=== PATIENT | female | born 1960 | race Caucasian/White ===

== ENCOUNTER 2016-12-10 06:47 | Inpatient (IN) | payer OTHER ==
[2016-11-09 10:11] VITALS: BMI 41.0
--- NOTE | 2016-11-09 10:42 | PAT Medication Instructions ---
Service Date Nov 09, 2016. Current Home Medication List Allopurinol (Zyloprim), 300 MG PO QAM Amphetamine-Dextroamphetamine 30MG (Adderall 30MG), 30 MG PO QAM/NOON B Complex W/ C (Vitamin B Complex-C), 1 TAB PO QAM Bupropion (Wellbutrin-Xl), 300 MG PO QAM Cholecalciferol (Vitamin D3), 1 CAP PO QAM Citalopram Hydrobromide (Celexa), 20 MG PO QPM Colchicine (Colchicine), 0.6 MG PO BID PRN for N Cyanocobalamin (Vitamin B12 500MCG), 1,500 MCG PO QAM Ezetimibe (Zetia), 10 MG PO QPM Fish Oil (Oto-3), 1,500 MG PO QAM Hydroxyzine Hcl (Atarax), 20-60 MG PO PRN Levothyroxine Sodium (Levothyroxine Sodium), 1 TAB PO QAM Naltrexone Hcl (Naltrexone Hcl), 1 TAB PO QAM Potassium Chloride (Micro-K Ext Rel), 10 MEQ PO QAM Sumatriptan Succinate (Imitrex), 50 MG PO PRN PRN for UD Topiramate (Topamax), 50 MG PO BID Triamcinolone Acetonide (Nasal (Nasacort Allergy 24Hr), 2 SPRAYS HERNÁN PRN Triamterene/Hctz (Triamterene/Hctz 37.5-25MG), 1 TAB PO QAM Valsartan (Diovan), 80 MG PO QPM Warfarin Sod (Jantoven), 10 MG PO QPM Medication Instructions For Your Scheduled Surgery - Check with surgeon/video conference specialist for instructions: Warfarin Sod (Jantoven), 10 MG PO QPM - Hold the following medications 2 weeks prior to surgery: Fish Oil (Oto-3), 1,500 MG PO QAM - Hold the following medications the morning of surgery: Triamterene/Hctz (Triamterene/Hctz 37.5-25MG), 1 TAB PO QAM Potassium Chloride (Micro-K Ext Rel), 10 MEQ PO QAM Cyanocobalamin (Vitamin B12 500MCG), 1,500 MCG PO QAM Cholecalciferol (Vitamin D3), 1 CAP PO QAM B Complex W/ C (Vitamin B Complex-C), 1 TAB PO QAM Amphetamine-Dextroamphetamine 30MG (Adderall 30MG), 30 MG PO QAM/NOON Naltrexone Hcl (Naltrexone Hcl), 1 TAB PO QAM Colchicine (Colchicine), 0.6 MG PO BID PRN for N - Take the following medications the morning of surgery with a sip of water: Triamcinolone Acetonide (Nasal (Nasacort Allergy 24Hr), 2 SPRAYS HERNÁN PRN (if needed) Topiramate (Topamax), 50 MG PO BID Sumatriptan Succinate (Imitrex), 50 MG PO PRN PRN for UD (if needed) Levothyroxine Sodium (Levothyroxine Sodium), 1 TAB PO QAM Hydroxyzine Hcl (Atarax), 20-60 MG PO PRN (if needed) Bupropion (Wellbutrin-Xl), 300 MG PO QAM Allopurinol (Zyloprim), 300 MG PO QAM - Hold the following medications as scheduled the night before surgery: Colchicine (Colchicine), 0.6 MG PO BID PRN for N Valsartan (Diovan), 80 MG PO QPM - Take the following medications as scheduled the night before surgery: Triamcinolone Acetonide (Nasal (Nasacort Allergy 24Hr), 2 SPRAYS HERNÁN PRN (if needed) Topiramate (Topamax), 50 MG PO BID Sumatriptan Succinate (Imitrex), 50 MG PO PRN PRN for UD (if needed) Hydroxyzine Hcl (Atarax), 20-60 MG PO PRN (if needed) Ezetimibe (Zetia), 10 MG PO QPM Citalopram Hydrobromide (Celexa), 20 MG PO QPM Amphetamine-Dextroamphetamine 30MG (Adderall 30MG), 30 MG PO QAM/NOON If you have any questions please call us at [phone] or [phone] or [phone]
--- NOTE | 2016-11-09 11:17 | DIAGNOSTIC IMAGING REPORT ---
CHEST PREADMISSION(PA/LAT) CLINICAL HISTORY: Preoperative evaluation. COMPARISON STUDY: No previous studies for comparison. FINDINGS: Lung volumes are normal. There is no pneumothorax or pleural effusion. There is no evidence of pulmonary edema. There is slight elevation of the right hemidiaphragm. No consolidation is identified. Cardiomediastinal silhouette is normal. IMPRESSION: No acute cardiopulmonary findings. Electronically signed by: Amrti Sanchez M.D. 11/09/2016 11:16 AM Dictated Date/Time: 11/09/2016 11:15 AM
[2016-11-09 12:14] LABS: BASO % 0.4 %; BASO ABS # 0.04 K/uL (0-0.2); COMPLETE YES; EOS % 1.6 %; HEMATOCRIT 44.6 % (37-47); IG% 0.2 %; LYMPH % 28.4 %; LYMPH ABS # 2.91 K/uL (1.2-3.4); MEAN CELL VOLUME 91.2 fL (80-100); MEAN CORPUSCULAR HEMOGLOBIN 30.7 pg (25-34); MEAN CORPUSCULAR HGB CONC 33.6 g/dl (32-36); MEAN PLATELET VOLUME 9.8 fL (7.4-10.4); MONO % 7.5 %; NEUT % 61.9 %; PLATELET COUNT 300 K/uL (130-400); RED BLOOD COUNT 4.89 M/uL (4.2-5.4); WHITE BLOOD COUNT 10.26 K/uL (4.8-10.8)
[2016-11-09 12:14] LABS: URINE APPEARANCE CLEAR (CLEAR); URINE BILIRUBIN NEG (NEG); URINE COLOR DK YELLOW; URINE NITRITE NEG (NEG); URINE PH 7.5 (4.5-7.5); URINE SPECIFIC GRAVITY 1.018 (1.000-1.030); UROBILINOGEN NEG (NEG)
[2016-11-09 12:21] LABS: BUN/CREATININE RATIO 17.5 (10-20); CALCIUM 9.5 mg/dl (8.5-10.1); POTASSIUM 3.6 mmol/L (3.5-5.1)
[2016-11-09 12:31] LABS: INR 2.7 (0.9-1.1); PARTIAL THROMBOPLASTIN RATIO 1.4
[2016-11-09 12:34] LABS: MANUAL MICROSCOPIC REQUIRED? NO; REVIEW REQ? NO
--- NOTE | 2016-12-08 17:20 | History and Physical ---
History & Physical Date Dec 08, 2016. Chief Complaint LEFT KNEE PAIN History of Present Illness The patient is a 56 year old female with complaints of left knee pain for years. Has had multiple injections and therapy with no relief. Also had arthroscopic surgery in [place] and not much relief. Shes ready for left TKA. Pt has hx of antiphospholipid syndrome and on coumadin for that. Her grain weigher recommends lovenox 1gram/kg post op until INR therapeutic. Additional History Hepatic Disease: No Endocrine Disorder: No Kidney Disease: No Hypertension: Yes Heart Disease: No Bleeding Tendencies: Yes (APL syndrome, hx of PE in past) Infectious Diseases: No Allergies Coded Allergies: Adhesives (Verified Allergy, Unknown, REDNESS SKIN IRRITATION, 11/09/16) Ciprofloxacin (Verified Allergy, Unknown, HIVES, 11/09/16) Milk (Verified Allergy, Unknown, CAN'T PROCESS MILK PROD-EATS SMALL AMTS - GETS CONSTIPATION, 11/09/16) Home Medications Scheduled Allopurinol (Zyloprim), 300 MG PO QAM Amphetamine-Dextroamphetamine 30MG (Adderall 30MG), 30 MG PO QAM/NOON B Complex W/ C (Vitamin B Complex-C), 1 TAB PO QAM Bupropion (Wellbutrin-Xl), 300 MG PO QAM Cholecalciferol (Vitamin D3), 1 CAP PO QAM Citalopram Hydrobromide (Celexa), 20 MG PO QPM Cyanocobalamin (Vitamin B12 500MCG), 1,500 MCG PO QAM Ezetimibe (Zetia), 10 MG PO QPM Fish Oil (Shelby-3), 1,500 MG PO QAM Hydroxyzine Hcl (Atarax), 20-60 MG PO PRN Levothyroxine Sodium (Levothyroxine Sodium), 1 TAB PO QAM Potassium Chloride (Micro-K Ext Rel), 10 MEQ PO QAM Topiramate (Topamax), 50 MG PO BID Triamcinolone Acetonide (Nasal (Nasacort Allergy 24Hr), 2 SPRAYS HERNÁN PRN Triamterene/Hctz (Triamterene/Hctz 37.5-25MG), 1 TAB PO QAM Valsartan (Diovan), 80 MG PO QPM Warfarin Sod (Jantoven), 10 MG PO QPM Scheduled PRN Colchicine (Colchicine), 0.6 MG PO BID PRN for N Sumatriptan Succinate (Imitrex), 50 MG PO PRN PRN for UD Physical Examination Skin: warm/dry, no rash Eyes: normal inspection, EOMI, sclerae normal ENT: normal ENT inspection, pharynx normal Head: normocephalic, atraumatic Neck: supple, no adenopathy, trachea midline Respiratory/Chest: lungs clear, normal breath sounds, no respiratory distress Cardiovascular: regular rate, rhythm, no edema, no murmur Abdomen / GI: normal bowel sounds, non tender Back: normal inspection Extremities: + pertinent finding (pain with rom left knee) Diagnosis DJD LEFT KNEE Plan of Treatment PLAN IS ADMIT AND UNDERGO LEFT TKA. PT WILL BE ON ZAIRE/COUMADIN POST OP, DEF NO TOURNIQUET, DRAIN AND HOME PT.
[~2016-12-10] VITALS: Ht 175.3 cm; Wt 127.3 kg
[2016-12-10] VITALS (10 sets, daily range): BP systolic 96–150; BP diastolic 61–81; PULSE 74–81; TEMP 36.4–36.9; O2SAT 95–98; Ht 175.3 cm; Wt 127.3 kg
[~2016-12-10 06:47] MED LIST: ACETAMINOPHEN 500 MG TAB PO SCH; ALLO300T2 PO; AMPH30TA2 PO; B COCAP3 PO; BUPRTAB51 PO; CEFAZOLIN 3000 MG/65 ML D5W 65 ML IV SCH; CHOL2000 PO; CITA20TA9 PO; COLC0.6T54 PO; CYAN500T13 PO; CeleBREX 200 MG CAP PO SCH; DEXAMETHASONE 4 MG TAB PO SCH; DVN80 PO; EZET10TA63 PO; FAMOTIDINE 20 MG TAB PO SCH; HYDR-389 PO; LACTATED RINGER'S 1000ML 1,000 ML IV SCH; LACTATED RINGER'S 1000ML 500 ML IV ONE; LEVO150T9 PO; METOCLOPRAMIDE HCL 10 MG TAB PO SCH; OMEG10007 PO; POTA10CA28 PO; ROPIVACAINE 5MG/ML 30 ML 150 MG, BUPIVACAINE/EPINEPHR 0.5% MPF 30 ML, KETOROLAC TROMETH... INFIL SCH; SUMA50TA15 PO; TOPI50TA16 PO; TRANEXAMIC ACID INJ 1,000 MG in SODIUM CHLORIDE 0.9% 100ML 100 ML IV SCH; TRIA1SPR4 NAE; TRIATAB3 PO; WARF10TA4 PO
[2016-12-10 07:56] LABS: INR 1.1 (0.9-1.1)
[2016-12-10] MEDS ORDERED: BUPIVACAINE 0.25% 30 ML VIAL ONE (08:08)
[2016-12-10] MEDS ORDERED: EpINEphrine INJ 1MG/ML AMP 1 MG/ML AMP ONE (08:09)
[2016-12-10] MEDS ORDERED: BUPIVACAINE 0.5 % 5 MG/1 ML PF 10ML VIAL ONE (08:09)
[2016-12-10] MEDS ORDERED: MIDAZOLAM HCL 1 MG/ML 2ML VIAL ONE (08:14)
[2016-12-10] MEDS ORDERED: LIDOCAINE HCL 2% 2 ML VIAL (20MG/ML) ONE (08:14)
[2016-12-10] MEDS ORDERED: PROPOFOL IV EMULSION 10 MG/ML 20 ML VIAL IV ONE ×3 (08:14→10:45)
[2016-12-10] MEDS ORDERED: PHENYLEPHRINE 100MCG/ML 5ML SYR IV PRN (08:15)
[2016-12-10] MEDS ORDERED: NALOXONE HCL 0.4 MG/1 ML VIAL/CARP IV PRN (08:15)
[2016-12-10] MEDS ORDERED: LABETALOL HCL IV 5 MG/ML 20ML IV PRN (08:15)
[2016-12-10] MEDS ORDERED: FENTANYL CITRATE INJ 50 MCG/1 ML 2 ML VIAL IV PRN (08:15)
[2016-12-10] MEDS ORDERED: HYDROmorphone INJ 1 MG/ML SYR IV PRN (08:15)
[2016-12-10] MEDS ORDERED: EpHEDrine SULFATE INJ 50 MG/ML AMP IV PRN (08:15)
[2016-12-10] MEDS ORDERED: ONDANSETRON INJ 2 MG/ML 2 ML VIAL IV PRN ×2 (08:15→10:45)
[2016-12-10] MEDS ORDERED: MEPERIDINE HCL 25 MG/ML CARP IV PRN (08:15)
[2016-12-10] MEDS ORDERED: FLUMAZENIL 0.1 MG/1 ML 10 ML VIAL IV PRN (08:15)
[2016-12-10] MEDS ORDERED: ATROPINE SULFATE 0.1 MG/ML 5ML SYR IV PRN (08:15)
--- NOTE | 2016-12-10 08:28 | History & Physical Bridge Note ---
H&P Re-Evaluation Bridge Note: I have examined the patient, reviewed the History & Physical and in the interval since the performance of the History & Physical I have noted the following changes of clinical significance: No changes noted
[2016-12-10] MEDS ORDERED: ORTHO JOINT ANESTHETIC ONE (08:45)
[2016-12-10] MEDS ORDERED: BACITRACIN 50000 UNIT VIAL ONE (08:46)
[2016-12-10] MEDS ORDERED: POVIDONE-IODINE OP SOLN 30 ML BTL ONE (08:46)
[2016-12-10] MEDS ORDERED: ONDANSETRON INJ 2 MG/ML 2 ML VIAL ONE (09:57)
[2016-12-10] MEDS ORDERED: LABETALOL HCL IV 5 MG/ML 20ML IV ONE (10:10)
[2016-12-10] MEDS ORDERED: ALUMINUM/MAGNESIUM/SIMETH (MAALOX MAX) 30 ML UDC PO PRN (10:45)
[2016-12-10] MEDS ORDERED: BISACODYL 10 MG SUPP PR PRN (10:45)
[2016-12-10] MEDS ORDERED: MAGNESIUM HYDROXIDE SUSP 30 ML UDC PO PRN (10:45)
[2016-12-10] MEDS ORDERED: ZOLPIDEM TARTRATE 5 MG TAB PO PRN (10:45)
--- NOTE | 2016-12-10 10:45 | [facility] Operative Report ---
Operative Report Operative Date Dec 10, 2016. Pre-Operative Diagnosis Left Knee Degenerative Joint Disease Post-Operative Diagnosis Left Knee Degenerative Joint Disease Procedure(s) Performed Left Total Knee Arthroplasty Surgeon Dr. Saldana Contact Center Specialist Surgeon(s) KAYLIE Jones Estimated Blood Loss 60cc Findings As above Specimens A. Left Knee Bone and Tissue Complication(s) None Description of Procedure IMPLANTS USED: [employer]hew journey 2 knee size 6 cemented femoral component, a size 3 tibial component, a size 10 constrained insert and a size 32 all polyethylene patella INDICATIONS: nuris (female) who has unfortunately failed all forms of conservative measures. Therefore, they have decided to undergo elective surgical intervention. All risks and benefits of the surgery were discussed with the patient and the family in entirety. PROCEDURE: The patient was brought to the operating room and properly identified by myself, anesthesia, and staff. Patient was given a spinal anesthesia and placed on the operating table in the supine position. The leg was then prepped and draped in usual sterile fashion. We made a standard midline approach over the patella and dissected down through the subcutaneous tissue to identify the capsule and performed a medial capsulotomy with the patella everted and the knee flexed.The patient matched implant was then put onto the femur. The femur measured to be a size 6. This was then put into place. We made the appropriate cuts and then placed a retractor behind the proximal tibia to retract anteriorly. We then placed the patient matched knee implant on the tibia. It measured to be a size 3. A size 3 guide was then put in place. We used the tibial punch then put the trial components into place. We had very good range of motion, excellent stability, and excellent patella tracking. We removed the trial components and irrigated the wound. We impacted the components in place using antibiotic cement. All excess cement was removed. We then irrigated the wound once more. We closed the capsule with 0 PDS suture, deep dermis and 2-0 Vicryl, and finally the skin with landry. A sterile dressing was applied. The patient was taken to the recovery room in stable condition. Due to the complex nature of the procedure, the entire surgery was performed with the operational assistance of [the (KAYLIE-Maurice)]. The timber management assistant was under direct supervision, was involved in the actual performance of all aspects of the surgical procedure including hemostasis, tissue retraction and incision, instrument management, patient positioning, and wound closure. I attest to the content of the Intraoperative Record and any orders documented therein. Any exceptions are noted below.
[2016-12-10] MEDS ORDERED: SUMATRIPTAN SUCCINATE 50 MG TAB PO PRN (11:00)
[2016-12-10] MEDS ORDERED: TRIAMCINOLONE ACET NASAL SPRAY 10.8ML BTL NAE PRN (11:00)
--- NOTE | 2016-12-10 12:11 | Anesthesiology Progress Note ---
Anesthesia Post Op Note Date & Time Dec 10, 2016 at 12:11 Vital Signs Pain Intensity: 0 Vital Signs Past 12 Hours Date Time Temp Pulse Resp B/P (MAP) Pulse Ox O2 Delivery O2 Flow Rate FiO2 12/10/16 12:00 36.7 83 19 101/67 94 Nasal Cannula 2 12/10/16 11:50 82 16 110/64 95 Nasal Cannula 2 12/10/16 11:40 84 15 108/71 97 Nasal Cannula 2 12/10/16 11:30 79 16 129/66 95 Nasal Cannula 2 12/10/16 11:20 66 13 113/58 96 Nasal Cannula 2 12/10/16 11:12 36.8 78 13 115/59 96 Nasal Cannula 2 12/10/16 07:35 36.5 74 20 150/81 97 Room Air Notes Mental Status: alert / awake / arousable, participated in evaluation Pt Amnestic to Procedure: Yes Nausea / Vomiting: adequately controlled Pain: adequately controlled Airway Patency, RR, SpO2: stable & adequate BP & HR: stable & adequate Hydration State: stable & adequate Neuraxial Anesthesia: was administered, sensory block is resolving Anesthetic Complications: no major complications apparent
[2016-12-10] MEDS: SODIUM CHLORIDE 0.9% 1000ML 1,000 ML IV SCH ×2 (13:31→22:48)
--- NOTE | 2016-12-10 13:42 | Medical Consult ---
Consultation Date of Consultation: Dec 10, 2016. Attending Physician: Gorge Saldana DO Reason for Consultation: Medical Management History of Present Illness Ms. Mccabe is a 56 y/o female with PMHx of Antiphospholipid Syndrome on Coumadin , Gout, Hypothyroidism, HTN, HLD, and Anxiety/Depression who is S/P L TKA by Dr. Saldana. She has been on Coumadin since 2000 and reports generally well controlled levels. No recent blood clots. She denies any known cardiac issues. Her daycare provider recommends institution of therapeutic Lovenox for bridging with Coumadin. Pain is controlled with nerve block. She denies fever/chills, CP , SOB, N/V, abdominal pain, dysuria, constipation/diarrhea. Past Medical/Surgical History 1. Antiphospholipid Syndrome 2. HTN 3. HLD 4. Hypothyroidism 5. Gout 6. Anxiety/Depression Family History Hypertension Social History Smoking Status: Former Smoker Smokeless Tobacco Use: No Alcohol Use: socially Drug Use: none Occupation Status: employed Allergies Coded Allergies: Adhesives (Verified Allergy, Unknown, REDNESS SKIN IRRITATION, 12/10/16) Ciprofloxacin (Verified Allergy, Unknown, HIVES, 12/10/16) Milk (Verified Allergy, Unknown, CAN'T PROCESS MILK PROD-EATS SMALL AMTS - GETS CONSTIPATION, 12/10/16) Current Inpatient Medications Current Inpatient Medications Medications (Trade) Dose Ordered Sig/Doroteo Route Start Time Stop Time Status Last Admin Dose Admin Cefazolin Sodium 65 ml @ 100 mls/hr PREOP IV 12/10/16 06:00 12/10/16 18:00 12/10/16 09:24 100 MLS/HR Acetaminophen (Tylenol Tab) 1,000 mg PREOP PO 12/10/16 06:00 12/10/16 18:00 12/10/16 07:51 1,000 MG Celecoxib (CeleBREX CAP) 200 mg PREOP PO 12/10/16 06:00 12/10/16 18:00 12/10/16 07:49 200 MG Dexamethasone (Decadron Tab) 8 mg PREOP PO 12/10/16 06:00 12/10/16 18:00 12/10/16 07:50 8 MG Famotidine (Pepcid Tab) 20 mg PREOP PO 12/10/16 06:00 12/10/16 18:00 12/10/16 07:50 20 MG Metoclopramide HCl (Reglan Tab) 10 mg PREOP PO 12/10/16 06:00 12/10/16 18:00 12/10/16 07:50 10 MG Ropivacaine 150 mg/Bupivacaine HCl/Epinephrine Bitart 30 ml/ Ketorolac Tromethamine 30 mg/Dexamethasone Sodium Phosphate 4 mg/Ketamine HCl 10 mg/Clonidine 100 mcg/Sodium Chloride 30 ml/ Empty Bag 93.2 ml @ 0 mls/hr TODAY@06 INFIL 12/10/16 06:00 12/10/16 15:00 12/10/16 10:08 93.2 MLS/HR Sodium Chloride 1,000 ml @ 100 mls/hr Q10H IV 12/10/16 13:00 12/11/16 12:59 12/10/16 13:31 100 MLS/HR Oxycodone HCl (Roxicodone Immediate Rel Tab) 1 TABLET FOR PAIN RATING... Q4H PRN PO 12/10/16 10:45 12/24/16 10:44 Oxycodone HCl (Oxycontin Tab) 10 mg Q12 PO 12/10/16 21:00 12/24/16 20:59 Acetaminophen (Tylenol Tab) 1,000 mg Q8 PO 12/10/16 15:00 01/09/17 14:59 Magnesium Hydroxide (Milk Of Magnesia Susp) 30 ml Q6H PRN PO 12/10/16 10:45 01/09/17 10:44 Bisacodyl (Dulcolax Supp) 10 mg DAILY PRN VA 12/10/16 10:45 01/09/17 10:44 Docusate Sodium (coLACE CAP) 100 mg BID PO 12/10/16 21:00 01/09/17 20:59 Diphenhydramine HCl (Benadryl Cap) 25 mg Q8H PRN PO 12/10/16 10:45 01/09/17 10:44 Al Hydrox/Mg Hydrox/Simethicone (Maalox Max Susp) 15 ml Q4H PRN PO 12/10/16 10:45 01/09/17 10:44 Zolpidem Tartrate (Ambien Tab) 5 mg HSZ PRN PO 12/10/16 10:45 01/09/17 10:44 Ondansetron HCl (Zofran Inj) 4 mg Q6H PRN IV 12/10/16 10:45 01/09/17 10:44 Pantoprazole Sodium (Protonix Tab) 40 mg QAM PO 12/11/16 09:00 01/10/17 08:59 Dexamethasone Sodium Phosphate 10 mg/Syringe 2.5 ml @ 1 mls/min 0730 IV 12/11/16 07:30 12/11/16 07:33 Bupropion HCl (Wellbutrin-Xl Tab) 300 mg QAM PO 12/11/16 09:00 01/10/17 08:59 Citalopram Hydrobromide (celeXA TAB) 20 mg QPM PO 12/10/16 21:00 01/09/17 20:59 EZETIMIBE (Zetia Tab) 10 mg QPM PO 12/10/16 21:00 01/09/17 20:59 Levothyroxine Sodium (Synthroid Tab) 150 mcg DAILYBB PO 12/11/16 06:00 01/10/17 05:59 Potassium Chloride (Klor-Con M10) 10 meq QAM PO 12/11/16 09:00 01/10/17 08:59 Sumatriptan Succinate (Imitrex Tab) 50 mg DAILY PRN PO 12/10/16 11:00 01/09/17 10:59 Topiramate (Topamax Tab) 50 mg BID PO 12/10/16 21:00 01/09/17 20:59 Triamcinolone Acetonide (Nasacort Allergy 24hr) 2 sprays DAILY PRN HERNÁN 12/10/16 11:00 01/09/17 10:59 Triamterene/HCTZ (Maxzide 37.5/25 Tab) 1 tab QAM PO 12/11/16 09:00 01/10/17 08:59 Valsartan (Diovan Tab) 80 mg QPM PO 12/10/16 21:00 01/09/17 20:59 Non-Formulary Medication (Amphetamine-Dextroamphetamine 30MG (Adderall 30MG)) 30 mg QAM/NOON PO 12/10/16 11:00 01/09/17 10:59 UNV Warfarin Sodium (Coumadin Tab) 10 mg DAILY@1600 PO 12/10/16 21:00 01/09/17 20:59 Cefazolin Sodium 2000 mg/Dextrose 60 ml @ 100 mls/hr Q8H IV 12/10/16 18:00 12/11/16 02:35 Review of Systems Constitutional: No fever, No chills Eyes: No worsening of vision ENT: No nasal symptoms, No sore throat, No trouble swallowing Respiratory: No cough, No sputum, No wheezing, No shortness of breath Cardiovascular: No chest pain, No palpitations Abdomen: No pain, No nausea, No vomiting, No diarrhea, No constipation Musculoskeletal: No joint pain Genitourinary - Female: No dysuria Integumentary: No rash Physical Exam Date Time Temp Pulse Resp B/P (MAP) Pulse Ox O2 Delivery O2 Flow Rate FiO2 12/10/16 13:24 36.8 76 18 97/61 (73) 97 Nasal Cannula 2.0 12/10/16 12:50 36.7 77 18 104/66 (79) 95 Nasal Cannula 2.0 12/10/16 12:20 36.9 81 16 96/63 (74) 95 Nasal Cannula 2.0 12/10/16 12:20 Nasal Cannula 2.0 12/10/16 12:20 Nasal Cannula 2.0 12/10/16 12:10 84 14 101/63 95 Nasal Cannula 2 12/10/16 12:00 36.7 83 19 101/67 94 Nasal Cannula 2 12/10/16 11:50 82 16 110/64 95 Nasal Cannula 2 12/10/16 11:40 84 15 108/71 97 Nasal Cannula 2 12/10/16 11:30 79 16 129/66 95 Nasal Cannula 2 12/10/16 11:20 66 13 113/58 96 Nasal Cannula 2 12/10/16 11:12 36.8 78 13 115/59 96 Nasal Cannula 2 12/10/16 07:35 36.5 74 20 150/81 97 Room Air General Appearance: WD/WN, no apparent distress, + obese Head: normocephalic, atraumatic Eyes: sclerae normal ENT: hearing grossly normal Neck: supple, no JVD, trachea midline Respiratory/Chest: lungs clear, normal breath sounds, no respiratory distress, no accessory muscle use Cardiovascular: regular rate, rhythm, no gallop, no murmur Abdomen/GI: normal bowel sounds, non tender, soft Extremities/Musculoskelatal: normal capillary refill, + pertinent finding (L knee with LUDWIN wrap C/D/I; nerve block active and unable to move toes; temp equal ) Neurologic/Psych: alert, oriented x 3 Skin: normal color, warm/dry Laboratory Results Last 24 Hours Test 12/10/16 07:26 Prothrombin Time 12.0 SECONDS Prothromb Time International Ratio 1.1 Activated Partial Thromboplast Time 26.1 SECONDS Partial Thromboplastin Ratio 1.0 Assessment & Plan Ms. Mccabe is a 56 y/o female with PMHx of Antiphospholipid Syndrome on Coumadin , Gout, Hypothyroidism, HTN, HLD, and Anxiety/Depression who is S/P L TKA by Dr. Saldana. S/P L TKA by Dr. Saldana on 12/10: - No documented complications; minimal blood loss - Pain management, DVT Prophylaxis, PT/OT per primary - DVT prophylaxis - Coumadin with Lovenox bridge -- Received spinal anesthesia and therefore will need to hold on bridge - discussed with orthopedics Antiphospholipid Syndrome: STABLE - Coumadin 10 mg daily - will bridge with therapeutic Lovenox daily until INR therapeutic - INR 1.1 - Monitor INR HTN: CONTROLLED - Diovan 80 mg daily and Triamterene/HCTZ daily Hypothyroidism: - Levothyroxine 150 mcg daily Anxiety/Depression/ADD: - Wellbutrin 300 mg daily and Celexa 20 mg daily - Adderall (non-formulary) Thank you for the consultation. Will continue to follow. Attending Addendum: I have physically seen and examined this patient, have directed the physician assistants medical activities, and agree with the H&P as noted above with the following exceptions as noted. The patient is awake, well-developed and adequately nourished, alert and oriented 3, normocephalic and atraumatic, lying in bed and in no acute distress. HEENT--PERRL, EOMI, mucous membranes and oropharynx dry. Neck--supple, no JVD or bruits, thyroid normal, trachea midline, no adenopathy. Heart--normal S1 and S2, no extra beats, no murmurs, rubs or gallops. Lungs--clear bilaterally with good air movement, no respiratory distress, no accessory muscle use. Abdomen--normal bowel sounds and soft, nontender and nondistended, no hernias or masses, no organomegaly. Extremities--no cyanosis, clubbing or edema. There are good distal pulses b/l. Dermatologic--normal skin turgor, normal color, warm and dry, no abnormal lymph nodes, no rash. Neurologic--cranial nerves II through XII grossly intact, motor and sensory examination normal. Rheumatologic--left knee with Ludwin wrap, dressings clean dry and intact. Psychiatric--normal affect. Assessment and Plan: Status post left TKA on December 10-patient seen postoperatively and is medically stable. Antiphospholipid syndrome- Coumadin with Lovenox bridge when appropriate associated with spinal anesthesia. Hypertension--continue Diovan 80 mg and triamterene/HCTZ daily, follow serial PRP and magnesium levels. Hypothyroidism--continue levothyroxine sodium 150 g by mouth daily.
[2016-12-10] MEDS ORDERED: AMPH30CA3 PO (13:57)
[2016-12-10] MEDS: ACETAMINOPHEN 500 MG TAB PO SCH ×2 (15:54→21:27)
[2016-12-10] MEDS ORDERED: CEFAZOLIN IV 2 MG in DEXTROSE 5% 50ML 50 ML IV SCH (18:00)
[2016-12-10] MEDS: CEFAZOLIN IV 2,000 MG in DEXTROSE 5% 50ML 50 ML IV SCH (18:20)
[2016-12-10] MEDS ORDERED: EZETIMIBE 10MG TAB PO SCH (21:00)
[2016-12-10] MEDS ORDERED: VALSARTAN 80 MG TAB PO SCH (21:00)
[2016-12-10] MEDS ORDERED: CITALOPRAM 20 MG TAB PO SCH (21:00)
[2016-12-10] MEDS ORDERED: WARFARIN SOD 10 MG TAB PO SCH (21:00)
[2016-12-10] MEDS: DOCUSATE SODIUM 100 MG CAP PO SCH (21:25)
[2016-12-10] MEDS: TOPIRAMATE 50 MG TAB PO SCH (21:26)
[2016-12-10] MEDS: OXYCODONE HCL 10 MG TABCR (OXYCONTIN) PO SCH (21:30)
[2016-12-11] MEDS: CEFAZOLIN IV 2,000 MG in DEXTROSE 5% 50ML 50 ML IV SCH (01:56)
[2016-12-11 03:10] VITALS: BP 94/58; PULSE 72; TEMP 36.6; O2SAT 97
[2016-12-11] MEDS: ACETAMINOPHEN 500 MG TAB PO SCH (05:30)
[2016-12-11 05:56] LABS: HEMATOCRIT 36.3 % (37-47); MEAN CELL VOLUME 90.1 fL (80-100); MEAN CORPUSCULAR HEMOGLOBIN 30.5 pg (25-34); MEAN CORPUSCULAR HGB CONC 33.9 g/dl (32-36); MEAN PLATELET VOLUME 9.6 fL (7.4-10.4); PLATELET COUNT 259 K/uL (130-400); RED BLOOD COUNT 4.03 M/uL (4.2-5.4); WHITE BLOOD COUNT 15.99 K/uL (4.8-10.8)
[2016-12-11] MEDS ORDERED: LEVOTHYROXINE 150 MCG TAB PO SCH (06:00)
[2016-12-11 06:08] LABS: INR 1.1 (0.9-1.1); PROTHROMBIN TIME (PATIENT) 11.5 SECONDS (9.0-12.0)
[2016-12-11 06:24] LABS: BUN/CREATININE RATIO 21.8 (10-20); CALCIUM 8.5 mg/dl (8.5-10.1); POTASSIUM 3.6 mmol/L (3.5-5.1)
--- NOTE | 2016-12-11 06:45 | Orthopedic Progress Note ---
Orthopedic Progress Note Date of Service Dec 11, 2016. Subjective Post OP Day: 1 Reports: feeling well, Denies: complaints Objective calves soft nontender, N/V intact, dressing C/D/I, A&O x3, toes mobile Date Time Temp Pulse Resp B/P (MAP) Pulse Ox O2 Delivery O2 Flow Rate FiO2 12/11/16 03:10 36.6 72 16 94/58 (70) 97 Room Air 12/10/16 23:55 Room Air 12/10/16 22:59 36.4 79 18 125/68 (87) 96 Room Air 12/10/16 22:13 36.6 76 18 133/70 (91) 96 Room Air 12/10/16 19:18 36.6 81 18 125/68 (87) 95 Nasal Cannula 12/10/16 15:55 98 Nasal Cannula 2.0 12/10/16 15:20 36.7 79 18 105/65 (78) 98 Nasal Cannula 2.0 12/10/16 14:21 36.7 77 17 109/68 (82) 97 2.0 12/10/16 13:24 36.8 76 18 97/61 (73) 97 Nasal Cannula 2.0 12/10/16 12:50 36.7 77 18 104/66 (79) 95 Nasal Cannula 2.0 12/10/16 12:20 36.9 81 16 96/63 (74) 95 Nasal Cannula 2.0 12/10/16 12:20 Nasal Cannula 2.0 12/10/16 12:20 Nasal Cannula 2.0 12/10/16 12:10 84 14 101/63 95 Nasal Cannula 2 12/10/16 12:00 36.7 83 19 101/67 94 Nasal Cannula 2 12/10/16 11:50 82 16 110/64 95 Nasal Cannula 2 12/10/16 11:40 84 15 108/71 97 Nasal Cannula 2 12/10/16 11:30 79 16 129/66 95 Nasal Cannula 2 12/10/16 11:20 66 13 113/58 96 Nasal Cannula 2 12/10/16 11:12 36.8 78 13 115/59 96 Nasal Cannula 2 12/10/16 07:35 36.5 74 20 150/81 97 Room Air Laboratory Results 24 Hours: Test 12/10/16 07:26 12/11/16 05:17 Prothromb Time International Ratio 1.1 1.1 Prothrombin Time 12.0 SECONDS 11.5 SECONDS Hematocrit 36.3 % Hemoglobin 12.3 g/dL Assessment & Plan Assessment: POD 1 s/p Left TKA PMH 1. Antiphospholipid Syndrome 2. HTN 3. HLD 4. Hypothyroidism 5. Gout 6. Anxiety/Depression Plan: PT/OT today Planning for Home Health services Coumadin/Lovenox bridging. Has Lovenox at home. INR results to [facility]. Possible dc to home today. Inhouse Planning Pain Management: Oxycontin, PO Tylenol, Oxy IR DVT Prophylaxis: TEDs, SCDs, Coumadin, Lovenox Discharge Planning Discharge Planning: home with home health Pain Management: Oxycontin, PO Tylenol, Oxy IR DVT Prophylaxis: TEDs, Coumadin, Lovenox Therapy: Physical Therapy
--- NOTE | 2016-12-11 06:55 | Discharge Instructions ---
Discharge Instructions Date of Service Dec 11, 2016. Admission Reason for Admission: Left Knee Osteoarthritis Discharge Discharge Diagnosis / Problem: Left Knee Djd Discharge Goals Goal(s): Decrease discomfort, Improve function, Increase independence Activity Recommendations Activity Limitations: per Instructions/Follow-up section Weightbearing Status: Left weightbearing (as tolerated) . Instructions / Follow-Up Instructions / Follow-Up PLEASE FOLLOW THE DISCHARGE INSTRUCTIONS LABELED "DO'S AND DON'TS" AND "DR CONNELL'S DISCHARGE INSTRUCTIONS FOR KNEE" THAT WILL BE GIVE TO YOU PRIOR TO DISCHARGE. Current Hospital Diet Patient's current hospital diet: Regular Diet Discharge Diet Recommended Diet: Regular Diet Procedures Procedures Performed: Left Total Knee Arthroplasty Pending Studies Studies pending at discharge: no Medical Emergencies . Who to Call and When: Medical Emergencies: If at any time you feel your situation is an emergency, please call 911 immediately. . Non-Emergent Contact Non-Emergency issues call your: Surgeon Call Non-Emergent contact if: temperature is above 101.5, your pain is not controlled, your pain is worsening, wound has increased drainage, wound has increased redness . "Provider Documentation" section prepared by Mick Fenton. . VTE Core Measure Inpt VTE Proph given/why not?: Enoxaparin (Lovenox)SQ, Warfarin (Coumadin), T.EGabe [place], SCD's [place] Drug Monitoring Program Search Results: patient reviewed within database, no issues identified
[2016-12-11] MEDS ORDERED: LVNIS120 SQ (06:59)
[2016-12-11] MEDS ORDERED: OXYSR10 PO (06:59)
[2016-12-11] MEDS ORDERED: RXC5 PO (06:59)
[2016-12-11] MEDS ORDERED: ACET-24 PO (06:59)
[2016-12-11] MEDS ORDERED: DEXAMETHASONE INJ 10 MG in SYRINGE 0 ML IV SCH (07:30)
[2016-12-11] MEDS ORDERED: ENOXAPARIN 1 MG/KG SQ SCH (08:00)
[2016-12-11 08:11] VITALS: BP 119/69; PULSE 56; TEMP 36.5; O2SAT 97
[2016-12-11] MEDS: OXYCODONE HCL 10 MG TABCR (OXYCONTIN) PO SCH (08:46)
[2016-12-11] MEDS: OXYCODONE HCL IR 5 MG TAB (IMMEDIATE RELEASE) PO PRN ×2 (08:47→13:25)
[2016-12-11] MEDS: TOPIRAMATE 50 MG TAB PO SCH (08:47)
[2016-12-11] MEDS: DOCUSATE SODIUM 100 MG CAP PO SCH (08:47)
[2016-12-11] MEDS: SODIUM CHLORIDE 0.9% 1000ML 1,000 ML IV SCH (08:52)
[2016-12-11] MEDS ORDERED: POTASSIUM CHLORIDE 10 MEQ TABCR PO SCH (09:00)
[2016-12-11] MEDS ORDERED: BuPROPion XL 300 MG TABCR PO SCH (09:00)
[2016-12-11] MEDS ORDERED: TRIAMTERENE/HCTZ 37.5/25MG TAB PO SCH (09:00)
[2016-12-11] MEDS ORDERED: ENOXAPARIN 120 MG/0.8 ML SYR SQ SCH (09:00)
[2016-12-11] MEDS ORDERED: PANTOprazole SOD 40 MG TAB PO SCH (09:00)
[2016-12-11 11:45] VITALS: BP 119/69; PULSE 56; TEMP 36.5; O2SAT 97
--- NOTE | 2016-12-18 08:41 | DISCHARGE SUMMARY ---
DISCHARGE DIAGNOSIS: Degenerative joint disease. left knee. SECONDARY DIAGNOSES: Hypertension and antiphospholipid syndrome. CONSULTS: Dr. Johnson. COMPLICATIONS: None. PROCEDURE: The patient underwent a left total knee arthroplasty with Dr. Saldana on 12/10/2016. BRIEF HISTORY: Please see previously dictated history and physical. HOSPITAL SUMMARY: The patient was admitted on the above day for the above procedure. Procedure went without complication. Postop day 1, the patient was feeling well without complaints. She denied chest pain or shortness of breath. Vital signs were stable. She was afebrile. Dressing was clean, dry and intact. She was neurovascularly intact. Calves were soft and nontender. Hemoglobin was 12.3, INR was 1.1. The patient began physical therapy per protocol. She resumed Coumadin with Lovenox bridging. INR will be managed by her senior executive assistant. The patient was discharged home later that day in stable condition. For further review please see the chart. Lab, x-ray data and discharge instructions as per chart.
== END 2016-12-11 13:47 | disposition home health service (06) | DRG 470 ==
LOC: C.ACU 06:47 → C.3E 08:30 → ENRESERV 11:56
PROVIDERS: ADMIT Orthopaedic Surgery; ATTEND Orthopaedic Surgery
PROC: 0SRD0J9 Replacement of Left Knee Joint with Synthetic Substitute, Cemented, Open Approach (ICD-10-PCS; principal; 2016-12-10 09:15)
DX: M17.12 Unilateral primary osteoarthritis, left knee (principal); D68.61 Antiphospholipid syndrome; M10.9 Gout, unspecified; I10 Essential (primary) hypertension; E78.5 Hyperlipidemia, unspecified; F41.9 Anxiety disorder, unspecified; F32.9 Major depressive disorder, single episode, unspecified; E03.9 Hypothyroidism, unspecified; Z79.01 Long term (current) use of anticoagulants; Z79.899 Other long term (current) drug therapy; Z87.891 Personal history of nicotine dependence